=== PATIENT | female | born 1955 | race Two or more races ===

== ENCOUNTER 2020-10-31 23:47 | Inpatient (IN) | payer MEDICAID ==
[~2020-10-31] VITALS: Ht 152.4 cm; Wt 72.7 kg
[2020-11-01 02:50] VITALS: BP 132/59; BMI 31.3
[2020-11-01] MEDS ORDERED: GLUCOPHAGE500 MG PO (05:50)
[2020-11-01 06:04] LABS: BASOPHILS 0.1 % (0-2); EOSINOPHILS 0.1 % (0-7); HEMATOCRIT 33.1 % (36.0-48.0); IMMATURE GRANULOCYTES 0.2 % (0-5); LYMPHOCYTE ABS# 1.13 10x3/uL (1.18-3.74); LYMPHOCYTES 8.3 % (15-50); MCH 30.6 pg (26.0-34.0); MCHC 33.2 g/dL (31.0-37.0); MCV 91.9 fL (80.0-100.0); MEAN PLATELET VOLUME 8.6 fL (7.4-10.4); MONOCYTES 5.2 % (2-11); NEUTROPHIL ABS# 11.69 10x3/uL (1.56-6.13); NEUTROPHILS 86.1 % (40-80); PLATELET COUNT 293 10x3/uL (130-400); RDW 14.1 % (11.5-14.5); WBC 13.6 10x3/uL (4.8-10.8)
[2020-11-01 06:14] LABS: APTT 30.7 SECONDS (22.8-39.4); INR 1.26 (0.85-1.17); PROTIME 14.6 SECONDS (11.6-15.0)
[2020-11-01 06:28] LABS: ALKALINE PHOSPHATASE 105 U/L (30-120); ALT (SGPT) 275 U/L (10-68); BILIRUBIN - TOTAL 1.18 mg/dL (0.2-1.3); CALC OSMOLALITY 274 mosm/kg (275-300); CALCIUM 7.9 mg/dL (8.5-10.1); CHLORIDE - SERUM 101 mmol/L (98-107); CHOL - HDL RATIO 2.8 ratio (2.3-4.1); CHOLESTEROL, TOTAL 177 mg/dL (0-200); CREATININE - SERUM 0.8 mg/dL (0.6-1.3); GLUCOSE 141 mg/dL (74-106); HDL CHOLESTEROL 63 mg/dL (32-96); LDL CHOLESTEROL 101 mg/dL (0-100); LDL-HDL RATIO 1.6 ratio (1.5-3.5); MAGNESIUM - SERUM 1.9 mg/dL (1.8-2.4); PHOSPHOROUS 2.9 mg/dL (2.5-4.9); POTASSIUM - SERUM 3.6 mmol/L (3.5-5.1); PROTEIN - SERUM 6.4 g/dL (6.4-8.2); SODIUM 137 mmol/L (136-145); TRIGLYCERIDE 68 mg/dL (30-200); UREA NITROGEN 9 mg/dL (7-18); eGFR NON AFRICAN AMERICAN 76 mL/min (90-120)
[2020-11-01 06:29] LABS: LIPASE 4432 U/L (73-393)
[2020-11-01 06:35] LABS: AMYLASE - SERUM 885 U/L (25-115)
--- NOTE | 2020-11-01 06:47 | NUR ---
PATRIZIA LEO APN IN REGARDS TO [facility] 885
[2020-11-01 07:15] LABS: CARBON DIOXIDE 25.4 mmol/L (21.0-32.0)
[2020-11-01 08:12] VITALS: BP 110/56
[2020-11-01 12:43] VITALS: BP 125/53
[2020-11-01 16:04] VITALS: Ht 152.4 cm; Wt 72.7 kg
[2020-11-01 18:02] VITALS: BP 132/52
--- NOTE | 2020-11-01 20:08 | NUR ---
ADMINISTERED TYLENOL PER PATIENT REQUEST. PATIENT DENIES OTHER NEEDS AT THIS TIME. GUEST AT BEDSIDE. BED IN LOWEST POSITION AND CALL LIGHT IN REACH.
--- NOTE | 2020-11-01 20:21 | NUR ---
ADMINISTERED MEDS PER ORDERS. PATIENT CLINTON WELL. ENCOURAGED TO CALL WITH NEEDS.
[2020-11-01 21:29] VITALS: BP 142/64
[2020-11-02 05:09] VITALS: BP 109/61
[2020-11-02 07:14] LABS: BASOPHILS 0.4 % (0-2); EOSINOPHILS 0.8 % (0-7); LYMPHOCYTES 13.5 % (15-50); MCH 31.1 pg (26.0-34.0); MCHC 33.3 g/dL (31.0-37.0); MCV 93.2 fL (80.0-100.0); MEAN PLATELET VOLUME 7.2 fL (7.4-10.4); MONOCYTES 4.3 % (2-11); PLATELET COUNT 306 10x3/uL (130-400); RBC 3.54 10x6/uL (4.00-5.40); RDW 14.2 % (11.5-14.5); WBC 11.5 10x3/uL (4.8-10.8)
[2020-11-02 07:23] LABS: ALBUMIN 2.8 g/dL (3.4-5.0); ALKALINE PHOSPHATASE 112 U/L (30-120); CALCIUM 8.3 mg/dL (8.5-10.1); CARBON DIOXIDE 24.5 mmol/L (21.0-32.0); CHLORIDE - SERUM 105 mmol/L (98-107); CREATININE - SERUM 0.6 mg/dL (0.6-1.3); GLUCOSE 122 mg/dL (74-106); POTASSIUM - SERUM 3.5 mmol/L (3.5-5.1); PROTEIN - SERUM 6.8 g/dL (6.4-8.2); SODIUM 138 mmol/L (136-145); eGFR NON AFRICAN AMERICAN > 90 mL/min (90-120)
[2020-11-02 07:24] LABS: ALT (SGPT) 160 U/L (10-68); CALC OSMOLALITY 273 mosm/kg (275-300); MAGNESIUM - SERUM 2.4 mg/dL (1.8-2.4); PHOSPHOROUS 1.8 mg/dL (2.5-4.9); UREA NITROGEN 5 mg/dL (7-18)
[2020-11-02 08:23] VITALS: BP 150/62
--- NOTE | 2020-11-02 08:45 | NUR ---
PT SITTING UP IN BED WATCHING TV. RESP EVEN AND UNLABORED. FINGER BLOOD SUGAR OBTAINED AT THIS TIME 123. IV TO LEFT HAND WITH NS @ 100ML/HR, SITE WTHOUT REDNESS OR EDEMA. DENIES FURTHER NEEDS AT THIS TIME. CL WITHIN REACH. ENCOURAGED TO CALL WITH NEED. CONTINUE POC
--- NOTE | 2020-11-02 10:30 | NUR ---
PT WITH C/O PAIN TO IV SITE, SLIGHT REDNESS NOTED. PT VOICES BURNING WHEN FLUSHED WITH SALINE, NO BLOOD RETURN NOTED. IV DISCONTINUED AT THIS TIME, CATH INTACT. 20G RESITED TO LEFT HAND X 1 STICK. GOOD BLOOD RETURN, EASILY FLUSHES. PT CLINTON WELL
[2020-11-02 10:53] LABS: BILIRUBIN NEGATIVE (NEGATIVE); KETONE TRACE mg/dL (< 1+); NITRITE NEGATIVE (NEGATIVE); PH 6.5 (5.0-8.0); UROBILINOGEN NORMAL mg/dL (< 2)
[2020-11-02 13:14] VITALS: BP 139/66
[2020-11-02 17:04] VITALS: BP 139/69
[2020-11-02 20:00] VITALS: BP 147/64
--- NOTE | 2020-11-02 20:00 | NUR ---
PT SITTING UP IN BED WITHOUT DISTRESS, AOX4. FAMILY AT BEDSIDE. DENIES PAIN OR NAUSEA AT THIS TIME. DENIES NEEDS. CL IN REACH, WILL CONT PLAN OF CARE
[2020-11-03] VITALS (10 sets, daily range): BP systolic 106–165; BP diastolic 55–68
[2020-11-03 07:08] LABS: BASOPHILS 0.4 % (0-2); EOSINOPHILS 4.8 % (0-7); HEMATOCRIT 32.2 % (36.0-48.0); HEMOGLOBIN 10.7 g/dL (12-16); LYMPHOCYTES 24.9 % (15-50); MCH 30.9 pg (26.0-34.0); MCHC 33.3 g/dL (31.0-37.0); MEAN PLATELET VOLUME 7.3 fL (7.4-10.4); MONOCYTES 6.8 % (2-11); NEUTROPHILS 63.1 % (40-80); PLATELET COUNT 323 10x3/uL (130-400); RBC 3.46 10x6/uL (4.00-5.40); RDW 13.8 % (11.5-14.5)
[2020-11-03 07:17] LABS: ALBUMIN 2.7 g/dL (3.4-5.0); ALKALINE PHOSPHATASE 109 U/L (30-120); BILIRUBIN - TOTAL 0.35 mg/dL (0.2-1.3); CALC OSMOLALITY 274 mosm/kg (275-300); CALCIUM 8.3 mg/dL (8.5-10.1); CARBON DIOXIDE 23.1 mmol/L (21.0-32.0); CHLORIDE - SERUM 106 mmol/L (98-107); CREATININE - SERUM 0.6 mg/dL (0.6-1.3); GLUCOSE 95 mg/dL (74-106); MAGNESIUM - SERUM 2.4 mg/dL (1.8-2.4); PHOSPHOROUS 2.1 mg/dL (2.5-4.9); POTASSIUM - SERUM 3.6 mmol/L (3.5-5.1); PROTEIN - SERUM 6.8 g/dL (6.4-8.2); SODIUM 139 mmol/L (136-145); UREA NITROGEN 4 mg/dL (7-18); eGFR NON AFRICAN AMERICAN > 90 mL/min (90-120)
[2020-11-03 07:18] LABS: WBC 8.3 10x3/uL (4.8-10.8)
[2020-11-03 07:19] LABS: ALT (SGPT) 107 U/L (10-68); LIPASE 572 U/L (73-393)
--- NOTE | 2020-11-03 07:54 | NUR ---
RECIEVED BEDSIDE REPORT. BED LOW POSITION, CALL LIGHT IN REACH. SAID THE DOCTOR HAS NOT BEEN BY TO TALK TO HER ABOUT THE SURGERY. FAMILY MEMBER IN THE ROOM. FREE FROM SIGNS OF DISTRESS. WILL CONTINUE TO MONITOR.
--- NOTE | 2020-11-03 12:10 | NUR ---
LEFT UNIT VIA BED TO PROCEDURE AT THIS TIME.
[2020-11-04] VITALS (12 sets, daily range): BP systolic 109–158; BP diastolic 54–73
--- NOTE | 2020-11-04 04:30 | NUR ---
PT STATES PAIN 10/10 TO ABD AND HEAD. STATES NORCO TAKEN EARLIER IN THE NIGHT DID NOT HELP MUCH. PAGED DR ADAMSON. DID NOT RECIEVE CALL BACK. CALLED CELL, WENT STRAIGHT TO [employer]. CALLED DAVID RIVERA APN, RECIEVED ORDER FOR ONE TIME DILAUDID. GAVE ORDERED. GAVE PT LEMON MOUTH SWABS FOR DRY MOUTH. PT INCISION TO ABD CDI. PT STATES SHE IS STARTING TO FEEL HEAVINESS TO CHEST AND SHOULDER AND NECK. EXPLAINED TO PT ABOUT THE GAS USED IN SURGERY AND ENCOURAGED PT TO START AMBULATING. PT VERBALIZED UNDERSTANDING. DENIES OTHER NEEDS AT THIS TIME. CL IN REACH, SON AT BEDSIDE.
--- NOTE | 2020-11-04 05:04 | NUR ---
PT 02 83% ON ROOM AIR. PLACED ON 2L/NC AND HAD PT TAKE DEEP BREATHS. PT O2 95% AFTER. INSTRUCTED PT ON INCENTIVE SPIROMETER AND PT DEMONSTRATED APPROPRIATE USE. PT GAVE GOOD EFFORT BUT WAS BARELY ABLE TO GET 500ML. PT BEGAN COUGHING AFTERWARDS. HELPED PT SPLINT ABD WITH PILLOW. ENCOURAGED PT TO USE INCENTIVE SPIROMETER WHILE AWAKE. PT AND SON VERBALIZED UNDERSTANDING. DENIES FURTHER NEEDS. CL IN REACH
[2020-11-04 06:30] LABS: BASOPHILS 0.3 % (0-2); EOSINOPHILS 0.6 % (0-7); HEMATOCRIT 33.4 % (36.0-48.0); HEMOGLOBIN 11.2 g/dL (12-16); MCHC 33.5 g/dL (31.0-37.0); MCV 92.7 fL (80.0-100.0); MEAN PLATELET VOLUME 7.1 fL (7.4-10.4); MONOCYTES 6.2 % (2-11); NEUTROPHILS 81.9 % (40-80); PLATELET COUNT 375 10x3/uL (130-400); RDW 13.7 % (11.5-14.5); WBC 9.1 10x3/uL (4.8-10.8)
[2020-11-04 06:56] LABS: ALKALINE PHOSPHATASE 157 U/L (30-120); ALT (SGPT) 130 U/L (10-68); BILIRUBIN - TOTAL 0.59 mg/dL (0.2-1.3); CALC OSMOLALITY 266 mosm/kg (275-300); CALCIUM 8.7 mg/dL (8.5-10.1); CARBON DIOXIDE 21.3 mmol/L (21.0-32.0); CHLORIDE - SERUM 101 mmol/L (98-107); CREATININE - SERUM 0.5 mg/dL (0.6-1.3); GLUCOSE 105 mg/dL (74-106); MAGNESIUM - SERUM 2.2 mg/dL (1.8-2.4); POTASSIUM - SERUM 3.4 mmol/L (3.5-5.1); PROTEIN - SERUM 7.2 g/dL (6.4-8.2); SODIUM 135 mmol/L (136-145); UREA NITROGEN 5 mg/dL (7-18); eGFR NON AFRICAN AMERICAN > 90 mL/min (90-120)
[2020-11-04 07:22] LABS: ALBUMIN 2.7 g/dL (3.4-5.0); LIPASE 123 U/L (73-393); PHOSPHOROUS 2.8 mg/dL (2.5-4.9)
--- NOTE | 2020-11-04 08:00 | NUR ---
RECIEVED BEDSIDE REPORT. BED LOW POSITION, CALL LIGHT IN REACH. SON AT BEDSIDE. DENIES NEEDS AT THIS TIME. FREE FROM SIGNS OF DISTRESS. X4 LAP SITES CDI. WILL CONTINUE TO MONITOR.
--- NOTE | 2020-11-04 13:55 | NUR ---
20CC CONTRAST USED FLURO TIME:70 SECONDS
--- NOTE | 2020-11-04 20:00 | NUR ---
PT SITTING UP IN BED WITHOUT DISTRESS, AOX4. SON AT BEDSIDE. DENIES PAIN OR NEEDS AT THIS TIME. CL IN REACH
[2020-11-05] VITALS: BP 125/44
[2020-11-05 04:00] VITALS: BP 140/63
[2020-11-05 06:26] LABS: BASOPHILS 0.2 % (0-2); EOSINOPHILS 0 % (0-7); HEMATOCRIT 33.8 % (36.0-48.0); HEMOGLOBIN 11.4 g/dL (12-16); LYMPHOCYTES 15.5 % (15-50); MCH 31.2 pg (26.0-34.0); MCHC 33.8 g/dL (31.0-37.0); MCV 92.3 fL (80.0-100.0); MEAN PLATELET VOLUME 7.2 fL (7.4-10.4); MONOCYTES 6.5 % (2-11); NEUTROPHILS 77.8 % (40-80); PLATELET COUNT 393 10x3/uL (130-400); RBC 3.67 10x6/uL (4.00-5.40); RDW 13.9 % (11.5-14.5); WBC 9.9 10x3/uL (4.8-10.8)
[2020-11-05 06:53] LABS: ALBUMIN 2.8 g/dL (3.4-5.0); ALKALINE PHOSPHATASE 401 U/L (30-120); BILIRUBIN - TOTAL 2.25 mg/dL (0.2-1.3); CALCIUM 8.9 mg/dL (8.5-10.1); CARBON DIOXIDE 23.8 mmol/L (21.0-32.0); CHLORIDE - SERUM 102 mmol/L (98-107); GLUCOSE 148 mg/dL (74-106); MAGNESIUM - SERUM 2.4 mg/dL (1.8-2.4); PHOSPHOROUS 2.8 mg/dL (2.5-4.9); POTASSIUM - SERUM 3.5 mmol/L (3.5-5.1); PROTEIN - SERUM 7.4 g/dL (6.4-8.2); SODIUM 136 mmol/L (136-145)
[2020-11-05 06:54] LABS: ALT (SGPT) 176 U/L (10-68); CALC OSMOLALITY 272 mosm/kg (275-300); CREATININE - SERUM 0.7 mg/dL (0.6-1.3); LIPASE 166 U/L (73-393); UREA NITROGEN 7 mg/dL (7-18); eGFR NON AFRICAN AMERICAN 89 mL/min (90-120)
--- NOTE | 2020-11-05 07:50 | NUR ---
PT IS RESTING IN BED WITH EYES OPEN RESPIRATIONS ARE EVEN AND UNLABORED. PT IS AAOX 4. SON IS AT BEDSIE TO TRANSLATE. PT IS SINHALA SPEAKING. LAP SITES NOTED TO ABDOMEN X 4. PT DENIES PRESENCE OF PAIN/N/V AT THIS TIME. BS HYPOACTIVE X 4. PIV TO LEFT WRIST INFUSING PER MAR AND WITHOUT COMPROMISE. PT DENIES PRESENCE OF DYSPNEA/SOB AT THIS TIME. BED IS IN THE LOWEST POSITION. CALL LIGHT AND BEDSIDE TABLE ARE WITHIN REACH. SIDE RAILS X2. INCENTIVE SPIROMETER WITHIN REACH AND ENCOURAGED. PT DENIES FURTHER NEEDS. WILL CONT TO MONITOR.
[2020-11-05 08:44] VITALS: BP 164/69
[2020-11-05] MEDS ORDERED: HYDROCODON-ACE1 EA10 PO (10:54)
[2020-11-05 13:01] VITALS: BP 152/67
--- NOTE | 2020-11-05 14:44 | MORECARE ---
CASE MANAGEMENT DISCHARGE SUMMARY PATIENT: MARYSOL ACOSTA UNIT: [id number] ADM DATE: 11/01/20 AGE: 65 : 56 SEX: F ROOM/BED: D.2205 AUTHOR: JAIME,DOC PHYSICIAN: REFERRING PHYSICIAN: DAVIDSON ROSS MD DATE OF SERVICE: 11/05/20 Case Management Discharge Planning Summary COMMENTS ENTERED DATE: 11/05/20 14:35 CT COMMENT TYPE: Discharge Planning REVIEWER: Octavia Montanez CM went to see the patient, but she was in MRI. Her 2 children were in the room and they stated that she is independent with her care. At discharge she plans to return home. Her home is safe to return to and her kids will be her putaway driver home. They deny any needs from a CM standpoint. Her PCP is Dr Hansen in [facility] and she uses [facility] in [facility] Rosalie ( daughter) [phone] Sadiq ( son) [phone] DCP REVIEW SUMMARY ANTICIPATED D/C DATE: EXPECTED LOS : CASE STATUS: DCP Initiated INITIAL REVIEW: 11/01/2020 INITIAL REVIEWER: Octavia Montanez FINAL DISCHARGE DISPOSITION: : FINAL REVIEWER: FINAL REVIEW DATE: DCP Focus Questions & Answers QUESTION: ANSWER : PATIENT: MARYSOL ACOSTA ENCOUNTER: [id number] MEDICAL RECORD#: [id number] ADMISSION DATE: 11/01/2020 DISCHARGE DATE: ATTENDING MD: DAVIDSON SALAZAR : AGE: 65 MARITAL STATUS: M DC PLAN ID: [id number] FACILITY: [facility] PRINTED ON: 11/05/20 14:43 CT All edits/amendments must be made on the electronic document DICTATION DATE: 11/05/20 144 MINE ANALYST: DM 11/05/20 144 RPT#: [id number] DC DATE: STATUS: ADM IN [facility] [address] [place] [address] END OF REPORT
[2020-11-05 17:01] VITALS: BP 150/59
[2020-11-05 20:00] VITALS: BP 154/53
[2020-11-06] VITALS: BP 150/72
[2020-11-06 04:00] VITALS: BP 137/64
--- NOTE | 2020-11-06 05:14 | NUR ---
I have reviewed this patient and I concur with the Shift Assessment completed by the Licensed Practical Nurse today this shift.
[2020-11-06 05:32] LABS: BASOPHILS 0.3 % (0-2); EOSINOPHILS 1.3 % (0-7); HEMATOCRIT 32.6 % (36.0-48.0); LYMPHOCYTES 26.4 % (15-50); MCH 31.4 pg (26.0-34.0); MCHC 33.8 g/dL (31.0-37.0); MCV 92.9 fL (80.0-100.0); MEAN PLATELET VOLUME 6.7 fL (7.4-10.4); MONOCYTES 10.2 % (2-11); NEUTROPHILS 61.8 % (40-80); PLATELET COUNT 400 10x3/uL (130-400); RBC 3.51 10x6/uL (4.00-5.40); RDW 13.9 % (11.5-14.5); WBC 9.7 10x3/uL (4.8-10.8)
[2020-11-06 06:19] LABS: ALBUMIN 2.6 g/dL (3.4-5.0); ALKALINE PHOSPHATASE 365 U/L (30-120); ALT (SGPT) 185 U/L (10-68); BILIRUBIN - TOTAL 0.76 mg/dL (0.2-1.3); CALC OSMOLALITY 272 mosm/kg (275-300); CALCIUM 8.1 mg/dL (8.5-10.1); CARBON DIOXIDE 24.8 mmol/L (21.0-32.0); CHLORIDE - SERUM 104 mmol/L (98-107); CREATININE - SERUM 0.6 mg/dL (0.6-1.3); GLUCOSE 118 mg/dL (74-106); MAGNESIUM - SERUM 2.3 mg/dL (1.8-2.4); POTASSIUM - SERUM 3.9 mmol/L (3.5-5.1); PROTEIN - SERUM 6.9 g/dL (6.4-8.2); SODIUM 137 mmol/L (136-145); UREA NITROGEN 6 mg/dL (7-18); eGFR NON AFRICAN AMERICAN > 90 mL/min (90-120)
[2020-11-06 06:31] LABS: LIPASE 358 U/L (73-393); PHOSPHOROUS 1.7 mg/dL (2.5-4.9)
--- NOTE | 2020-11-06 07:15 | NUR ---
SITTING UP IN BEDSIDE CHAIR, DAUGHTER AT THE BEDSIDE. ALERT AND ORIENTED WITH NO CURRENT S/S OF DISTRESS AT THIS TIME. NO IV PRESENT. DENIES CURRENT NEEDS, WILL CONT TO MONITOR.
[2020-11-06 09:39] VITALS: BP 162/67
[2020-11-06 13:39] VITALS: BP 145/64
--- NOTE | 2020-11-09 08:38 | MORECARE ---
CASE MANAGEMENT DISCHARGE SUMMARY PATIENT: MARYSOL ACOSTA UNIT: [id number] ADM DATE: 11/01/20 AGE: 65 : 57 SEX: F ROOM/BED: D.2205 AUTHOR: JAIME,DOC PHYSICIAN: REFERRING PHYSICIAN: DAVIDSON ROSS MD DATE OF SERVICE: 11/09/20 Case Management Discharge Planning Summary COMMENTS ENTERED DATE: 11/05/20 14:35 CT COMMENT TYPE: Discharge Planning REVIEWER: Octavia Montanez CM went to see the patient, but she was in MRI. Her 2 children were in the room and they stated that she is independent with her care. At discharge she plans to return home. Her home is safe to return to and her kids will be her local truck driver home. They deny any needs from a CM standpoint. Her PCP is Dr Hansen in [facility] and she uses [facility] in [facility] Rosalie ( daughter) [phone] Sadiq ( son) [phone] DCP REVIEW SUMMARY ANTICIPATED D/C DATE: EXPECTED LOS : CASE STATUS: DCP Initiated INITIAL REVIEW: 11/01/2020 INITIAL REVIEWER: Octavia Montanez FINAL DISCHARGE DISPOSITION: : FINAL REVIEWER: FINAL REVIEW DATE: DCP Focus Questions & Answers QUESTION: ANSWER : PATIENT: MARYSOL ACOSTA ENCOUNTER: [id number] MEDICAL RECORD#: [id number] ADMISSION DATE: 11/01/2020 DISCHARGE DATE: 11/06/2020 ATTENDING MD: DAVIDSON SALAZAR : AGE: 65 MARITAL STATUS: M DC PLAN ID: [id number] FACILITY: [facility] PRINTED ON: 11/09/20 8:38 CT All edits/amendments must be made on the electronic document DICTATION DATE: 11/09/20836 RHYTHMIC GYMNASTICS COACH: UMM 11/09/2037 RPT#: [id number] DC DATE:11/06/20 STATUS: DIS IN [facility] [address] [place] [address] END OF REPORT
--- NOTE | 2020-11-09 14:49 | OP ---
PATIENT NAME: MARYSOL ACOSTA MEDICAL RECORD: [id number] :57 LOCATION:D.MS Min2205 ADMISSION DATE:11/01/20 SURGEON: CELIA MISTRY MD DATE OF OPERATION: 11/03/2020 PREOPERATIVE DIAGNOSES: 1. Acute cholecystitis with gallstones. 2. Pancreatitis. 3. Hypertension. 4. Diabetes mellitus. 5. Dyslipidemia. POSTOPERATIVE DIAGNOSES: 1. Acute cholecystitis with gallstones. 2. Pancreatitis. 3. Hypertension. 4. Diabetes mellitus. 5. Dyslipidemia. PROCEDURE: 1. Laparoscopic cholecystectomy with intraoperative cholangiogram. 2. Fluoroscopic interpretation. SURGEON: Celia Mistry MD DESCRIPTION OF PROCEDURE: The patient's abdomen was prepped and draped in sterile fashion. A cutdown was made on the superior aspect of the umbilicus. A 0 Vicryls were placed on the fascia bilaterally and the fascia was incised with a 15-blade. I then bluntly entered the peritoneal cavity and placed a 12-mm Malgorzata port. Under direct visualization, a 5-mm trocar was placed in the epigastrium and two more 5-mm trocars were placed in the right subcostal region. The gallbladder was noted to be distended and swollen and had a very large stone present in the fundus. We were able to dissect out the cystic artery and cystic duct. The cystic artery was clipped proximally and distally and ligated. The cystic duct was then clipped proximally and a small opening was made. Cook cholangiocatheter was brought through the anterior abdominal wall and rested in the cystic duct. We performed an intraoperative cholangiogram, which showed good filling of the bilateral hepatic ducts extending down to the common hepatic and the common bile duct. At the distal aspect of the common bile duct, there was a large filling defect with spillage of contrast around it into the duodenum. This appeared to be consistent with a stone or a mass of some sort. There did not appear to be any significant dilatation to the common bile duct. At this point, a cholangiocatheter was removed. We clipped the cystic duct three times distally and it was ligated. The gallbladder was then taken off the liver bed using electrocautery. The liver was treated with electrocautery to stop any bleeding. We then irrigated out the right upper quadrant. At this point, the ports and insufflation were then removed and the gallbladder was taken out through the umbilicus. The umbilical fascia was closed with interrupted 0 Vicryls times 3. The wounds were then irrigated out with normal saline and infused with 10 mL of 0.25% Marcaine with epinephrine. The skin incisions were closed with subcutaneous 5-0 Monocryl and dressed appropriately. COMPLICATIONS: None. CONDITION: Stable. OPERATIVE REPORT [id number] MARYSOL ACOSTA ANESTHESIA: General endotracheal and local. BLOOD LOSS: Minimal. TRANSINT:[id number] Voice Confirmation ID: [id number] DOCUMENT ID: [id number] CELIA MISTRY MD at 1449 CC: [id number] DICTATION DATE: 11/03/[address] TECHNICIAN: 11/03/20 1449 DIS IN 11/06/20 [id number] [place] [address]
== END 2020-11-06 16:58 | disposition home or self-care (01) | DRG 417 ==
LOC: D.ER 23:47 → D.MS 11-01 00:26
PROVIDERS: Family Medicine; Surgery; ADMIT Emergency Medicine; ATTEND Emergency Medicine
PROC: BF141ZZ Fluoroscopy of Gallbladder, Bile Ducts and Pancreatic Ducts using Low Osmolar Contrast (ICD-10-PCS; 2020-11-03)
PROC: 0FT44ZZ Resection of Gallbladder, Percutaneous Endoscopic Approach (ICD-10-PCS; principal; 2020-11-03 11:15)
PROC: 0FC98ZZ Extirpation of Matter from Common Bile Duct, Via Natural or Artificial Opening Endoscopic (ICD-10-PCS; 2020-11-04)
DX: K80.00 Calculus of gallbladder with acute cholecystitis without obstruction (principal); K85.90 Acute pancreatitis without necrosis or infection, unspecified; K80.42 Calculus of bile duct with acute cholecystitis without obstruction; I10 Essential (primary) hypertension; E78.5 Hyperlipidemia, unspecified; E11.9 Type 2 diabetes mellitus without complications